=== PATIENT | female | born 1975 | race Caucasian/White ===

== ENCOUNTER 2018-11-08 18:04 | Emergency (ER) | payer OTHER ==
[2018-11-08 18:13] VITALS: BP 132/79; PULSE 82; TEMP 98.2; BMI 23.1
--- NOTE | 2018-11-08 19:24 | PDOC ---
History of Present Illness - General Chief Complaint: Pain Stated Complaint: RT LEG PAIN History Source: Patient Exam Limitations: No Limitations - History of Present Illness Initial Comments: 11/08/18 19:00 43 yo female pmh cervical disc herniation (takes naproxen, gabapentin and cyclobenzaprine) presents to the ED for right foot and ankle pain. Patient states the pain started 1 week ago and has progressively worsened. Pt has trouble bearing weight and describes the pain as pins and needles from the foot extending up the leg when weight bearing. Pt denies any relief of pain with home pain meds. Denies trauma, recent travel, OCP use, calf tenderness, weakness or sensory changes unilaterally, F/C/N/V, CP, SOB. Past History - Past Medical History Allergies/Adverse Reactions: Allergies Allergy/AdvReac Type Severity Reaction Status Date / Time pregabalin [From Lyrica] Allergy Verified 11/08/18 18:13 Home Medications: Ambulatory Orders Cyclobenzaprine HCl 5 mg PO DAILY 11/08/18 Gabapentin 300 mg PO PRN PRN 11/08/18 COPD: No - Suicide/Smoking/Psychosocial Hx Smoking History: Never smoked Review of Systems - Review of Systems Constitutional: No: Fever Respiratory: No: Shortness of Breath Cardiac (ROS): No: Edema (resolved swelling) ABD/GI: No: Nausea, Vomiting : No: Burning, Dysuria Integumentary: No: Erythema, Lesions *Physical Exam - Vital Signs Last Vital Signs Temp Pulse Resp BP Pulse Ox 98.2 F 82 18 132/79 99 11/08/18 18:09 11/08/18 18:09 11/08/18 18:09 11/08/18 18:09 11/08/18 18:09 - Physical Exam General Appearance: Yes: Nourished, Appropriately Dressed. No: Apparent Distress HEENT: positive: EOMI Respiratory/Chest: positive: Lungs Clear, Normal Breath Sounds. negative: Crackles, Rhonchi, Wheezing Vascular Pulses: Dorsalis-Pedis (R): 3+, Doralis-Pedis (L): 3+ Extremity: positive: Normal Capillary Refill, Normal Inspection, Normal Range of Motion. negative: Pedal Edema, Swelling, Calf Tenderness Integumentary: positive: Normal Color, Dry, Warm Neurologic: positive: Fully Oriented, Alert, Normal Mood/Affect, Normal Response , Motor Strength 5/5 Moderate Sedation - Procedure Monitoring Vital Signs: Procedure Monitoring Vital Signs Temperature 98.2 F 11/08/18 18:09 Pulse Rate 82 11/08/18 18:09 Respiratory Rate 18 11/08/18 18:09 Blood Pressure 132/79 11/08/18 18:09 O2 Sat by Pulse Oximetry (%) 99 11/08/18 18:09 ED Treatment Course - RADIOLOGY Radiology Studies Ordered: Category Date Time Status DUPLEX VASCUL US-1 LEG [US] Stat Ultrasound 11/08/18 18:48 Ordered Medical Decision Making - Medical Decision Making 11/08/18 22:37 43 yo female presents to ED with 1 week of right foot pain on ambulation. Pain is located over the dorsum of the foot without changes in sensation or weakness. Pain described as sharp pins and needles. Exam: No erythema, warmth, swelling in the right foot/ankle. Normal ROM. Patient able to ambulate. Vital WNL Doppler right leg negative for DVT Right foot and ankle x ray negative for fractures Pt received 650 po tylenol with improvement of pain Will DC with PCP and Podiatry f/u if the pain does not improve. RICE precautions given and PO OTC tylenol/Motrin advised. Pt understands and agrees with plan *DC/Admit/Observation/Transfer Diagnosis at time of Disposition: Foot pain Qualifiers: Laterality: right Qualified Code(s): M79.671 - Pain in right foot - Discharge Dispostion Disposition: HOME Decision to Admit order: No - Referrals Referrals: Jose J Mccormack MD [Staff Physician] - - Patient Instructions Printed Discharge Instructions: DI for Foot Pain Additional Instructions: Please follow up with your Primary Care provider and the [facility]ter referred to you within the next 1 week if the pain persists. Continue resting, icing, elevating and compression the foot along with over the counter Tylenol and Motrin as needed for pain. Return to the emergency room for new or worsening symptoms including but not limited to: weakness, loss of sensation, redness or warmth in the foot or fevers. Thank you - Post Discharge Activity
[2018-11-08] MEDS ORDERED: ACETAMINOPHEN 325 MG TABLET (FP) PO ONE (20:22)
[2018-11-08] MEDS ORDERED: ACETAMINOPHEN 325 MG TABLET (FP) ONE (20:30)
--- NOTE | 2018-11-08 22:31 | PDOC ---
Attending Attestation - Resident Resident Name: Oseas Gaitan - ED Attending Attestation I have performed the following: I have examined & evaluated the patient, The case was reviewed & discussed with the resident, I agree w/resident's findings & plan, Exceptions are as noted - Physicial Exam PE: 11/08/18 22:26 awake alert lungs clear bilaterally heart rrr no mrg abd soft nt nd. ext wwp right foot with ttp over dorsum arch foot, medial arch. no med or lat malleolar tenderness. no swelling . no eccymosis. no warmth. 2 + dp/ pt pulses. knee and hip NT FROM. skin no rash. noted varicose veins. - Medical Decision Making 11/08/18 22:28 43 yo F with right foot pain. has had similar pain and swelling several months ago. no recent travel. denies injury. no f/c no redness. does wear an orthotic no changes recently. differential fx. strain, dvt. plan xray doppler. xray negative . doppler negative for dvt. plan dc home with podiatry followup dr. ramirez. <Twila Khanna - Last Filed: 11/08/18 22:26> - HPI HPI: 11/08/18 22:32 The patient is a 43-year-old female with a past medical history significant for cervical disk herniation (on naproxen, gabapentin, and cyclobenzaprine) presents to the emergency department with right foot pain. The patient presents with 1 week of right foot pain and swelling, associated with numbness and paresthesia traveling up the leg that worsened 2 days ago. The patient reports shes having difficulty bearing weight on foot. Denies fever, chills, nausea, vomiting, chest pain, shortness of breath. Allergies: pregabalin PCP: None reported - Medical Decision Making 11/08/18 22:32 Documentation prepared by Sweetie Covarrubias, acting as emergency medical service manager for Twila Khanna MD. <Sweetie Covarrubias - Last Filed: 11/08/18 22:32>
== END 2018-11-08 22:35 | disposition home or self-care (01) ==
LOC: JER 18:04
DX: M79.671 Pain in right foot (principal)
CPT/HCPCS: 73590-TC-RT-FY; 73610-TC-RT-FY; 73630-TC-RT-FY; 84703; 93971-TC; 99282-25